=== PATIENT | female | born 1990 | race Caucasian/White ===

== ENCOUNTER 2021-06-20 07:19 | Emergency (ER) | payer OTHER, SELFPAY ==
[2021-06-20 07:47] VITALS: BP 129/70; PULSE 65; RESP 18; TEMP 36.8; O2SAT 98
[2021-06-20 09:00] VITALS: BP 103/69; PULSE 70; RESP 18
[2021-06-20 09:15] LABS: Basophils Absolute Auto 0.1 K/mm3 (0.0-0.1); Basophils Percent Auto 1.1 % (0.2-1.2); Eosinophils Absolute Auto 0.2 K/mm3 (0-0.3); Eosinophils Percent Auto 3.2 % (0-4.4); Immature Granulocyte Absolute 0.02 K/mm3 (0.00-0.031); Immature Granulocyte Percent A 0.3 % (0-0.5); Lymphocytes Absolute Auto 2.45 K/mm3 (0.9-3.2); Lymphocytes Percent Auto 38.8 % (18.3-44.2); Mean Corpuscular HGB Conc 31.6 g/dl (32-36); Mean Corpuscular Hemoglobin 28.2 pg (26-34); Mean Corpuscular Volume 89.4 fl (80-100); Monocytes Absolute Auto 0.5 K/mm3 (0.1-0.6); Monocytes Percent Auto 7.9 % (2.6-8.5); Neutrophils Absolute Auto 3.1 K/mm3 (1.3-6.7); Neutrophils Percent Auto 48.7 % (45.5-73.1); Platelet Count Result 256 k/mm3 (150-375); Red Blood Count 4.25 M/mm3 (4.2-5.4); Red Cell Distribution Width 11.9 % (11.5-14.5); White Blood Count 6.3 K/mm3 (4.5-10.0)
[2021-06-20 09:27] LABS: Anion Gap 4 mmol/L (8-16); Blood Urea Nitrogen 12 mg/dL (7-17); Calcium 9.6 mg/dL (8.4-10.2); Carbon Dioxide 29 mmol/L (22-30); Chloride 107 mmol/L (98-107); Estimated CRCL calculation 112 ml/min; Estimated Glomerular Filt Rate > 60; Glucose 95 mg/dL (65-110); Potassium 4.6 mmol/L (3.4-5.0); Sodium 140 mmol/L (137-145)
--- NOTE | 2021-06-20 10:14 | PC.NURSE ---
software product specialist consulted to come and speak with patient regarding home care.
--- NOTE | 2021-06-20 10:58 | ED.GENADULT ---
HPI - General Adult General Chief complaint: Unspecified Stated complaint: breast pain Time Seen by Provider: 06/20/21 08:02 Source: patient and family Mode of arrival: ambulatory Limitations: no limitations History of Present Illness HPI narrative: 30-year-old with a history of mastitis here with complaints of right breast pain since last night. She denies any fever or chills. She is presently lactating. Denies any redness or drainage , her OB is in [facility]. Onset (ago): day(s) (1) Related Data Allergies Allergy/AdvReac Type Severity Reaction Status Date / Time No Known Allergies Allergy Verified 06/20/21 07:59 Review of Systems Review of Systems: All systems reviewed & are unremarkable except as noted in HPI and below Constitutional: Constitutional: Reports no additional constitutional complaints Eyes: Eyes: Reports no additional eye complaints ENT: Reports system reviewed and no additional complaints, except as documented Cardiovascular: Cardiovascular: Reports no additional cardiovascular complaints Gastrointestinal: Gastrointestinal: Reports no additional gastrointestinal complaints Genitourinary: Genitourinary: Reports no additional female genitourinary complaints Musculoskeletal: Musculoskeletal: Reports no additional musculoskeletal complaints Integumentary/Breasts: Skin/Breast: Reports as per HPI Neurologic: Reports system reviewed and no additional complaints, except as documented Exam Narrative: GENERAL: Well-appearing, well-nourished, and in no acute distress. HEAD: Normocephalic, atraumatic. EYES: PERRLA and EOMI.. NECK: Supple. Breast Right breast is engorged ,tender on palpation ,no erythema CHEST: Clear to auscultation. No respiratory distress. HEART: Regular rate and rhythm. No murmur heard. Normal peripheral pulses. ABDOMEN: Soft, nontender, nondistended, normal active bowel sounds. EXTREMITIES: Normal range of motion. No edema. SKIN: Warm, dry, no rash. NEURO: No focal deficits. Alert and oriented x3. PSYCH: Normal mood and affect. Course Course Emergency Course: Inform patient about her lab work. referral specialist from OB department was here to see the patient. She instructions were given by her and she will follow-up with her on outpatient basis. Meanwhile we will start on Augmentin. Advised to take Tylenol as needed for pain. Vital Signs Vital signs: Vital Signs Temperature 36.8 C 06/20/21 07:47 Pulse Rate 65 06/20/21 07:47 Respiratory Rate 18 06/20/21 07:47 Blood Pressure 129/70 06/20/21 07:47 Pulse Oximetry 98 06/20/21 07:47 Temperature 36.8 C 06/20/21 07:47 Pulse Rate 54 L 06/20/21 11:01 Respiratory Rate 18 06/20/21 11:01 Blood Pressure 102/72 06/20/21 11:01 Pulse Oximetry 98 06/20/21 11:01 Medical Decision Making Vital Signs Vital Signs: Vital Signs Temperature 36.8 C 06/20/21 07:47 Pulse Rate 65 06/20/21 07:47 Respiratory Rate 18 06/20/21 07:47 Blood Pressure 129/70 06/20/21 07:47 Pulse Oximetry 98 06/20/21 07:47 Temperature 36.8 C 06/20/21 07:47 Pulse Rate 54 L 06/20/21 11:01 Respiratory Rate 18 06/20/21 11:01 Blood Pressure 102/72 06/20/21 11:01 Pulse Oximetry 98 06/20/21 11:01 Lab Data Result diagrams: 06/20/21 09:02 06/20/21 09:02 Labs: Lab Results 06/20/21 06/20/21 Range/Units 09:02 09:02 WBC 6.3 (4.5-10.0) K/mm3 RBC 4.25 (4.2-5.4) M/mm3 Hgb 12.0 (12.0-15.0) g/dL Hct 38.0 (37.0-47.0) % MCV 89.4 (80-100) fl MCH 28.2 (26-34) pg MCHC 31.6 L (32-36) g/dl RDW 11.9 (11.5-14.5) % Plt Count 256 (150-375) k/mm3 MPV 10.0 (7.4-10.4) fl Immature Gran % (Auto) 0.3 (0-0.5) % Neut % (Auto) 48.7 (45.5-73.1) % Lymph % (Auto) 38.8 (18.3-44.2) % [place] % (Auto) 7.9 (2.6-8.5) % Eos % (Auto) 3.2 (0-4.4) % Baso % (Auto) 1.1 (0.2-1.2) % Lymph # (Auto) 2.45 (0.9-3.2) K/mm3 [place] # (Auto) 0
[2021-06-20 11:01] VITALS: BP 102/72; PULSE 54; RESP 18; O2SAT 98
--- NOTE | 2021-06-20 11:01 | PC.NURSE ---
care consultant in room to speak with pt.
--- NOTE | 2021-06-25 12:26 | PC.NURSE ---
Pt seen on 06-20-2021 charted noted on 06-25-2021. Called to consult pt. in ED for mastitis. Mother reports this is the 2nd time she has had mastitis with this child. Mother is pumping and bottle feeding. First episode mother had red areas to both breast and had a temperature for several days. She was able to resolve plugged areas within a few days and completed antibiotic treatment as ordered. A few days ago mother began with tender areas and lumps to both breasts , which quickly began to be extremely painful and reports she was unable to get the areas to resolve. Mother states she wishes to stop pumping and use the stored EBM she has and switch to formula. Discussed mother's pumping history, she is pumping 6-7 oz every 3-4 hours, she does not always feel empty each pumping session. Mother will limit pumping to 20 minutes. Infant is feeding 3 oz every three hours. Reviewed oversupply and reviewed mother is pumping more than 2 times infant feeding each session. Reviewed massage, self expression and warm compresses before pumping to assist with emptying breast completely each pumping session for the next 2-3 days. Mother will then begin to decrease pumping session by 1-2 minutes and to ice pack breasts after each session, decreasing every 2-3 days to slowly decrease milk supply Reviewed to watch for plugged ducts and work to resolve area within a few pumping sessions. Phone number given and requested mother call with further questions or concerns with pumping and milk supply. Advised to complete antibiotic treatment as ordered.
== END 2021-06-20 11:20 | disposition home or self-care (01) ==
PROVIDERS: Emergency Provider Family Medicine
DX: O91.23 Nonpurulent mastitis associated with lactation (principal)
CPT/HCPCS: 36415; 80048; 85025; 99283

== ENCOUNTER 2024-11-24 19:22 | Emergency (ER) | payer OTHER, SELFPAY ==
--- OUTSIDE RECORDS SUMMARY | 2024-11-24 19:24 | XMS_ITS | Clinical Summary ---
Author Organization [facility] Address [address] [place] [id number] Phone Care Team Providers Care Stereotype Molder Name Role Phone Unavailable Primary Care Provider Unavailabl e Social History Tobacco Use Types Packs/Day Years Used Date Smoking Tobacco: Never Assessed Comments Unknown Sex and Gender Information Value Date Recorded Sex Assigned at Not on file Legal Sex Female 11:36 AM [employer] Gender Identity Not on file Sexual Orientation Not on file Plan of Treatment Health Maintenance Due Date Last Done Comments DTAP/TDAP/TD VACCINES (1 - Tdap) 2008 HEPATITIS B VACCINES (1 of 3 - 19+ 3-dose series) 2008 CERVICAL CANCER SCREENING 2019 INFLUENZA VACCINE (#1) 2024 HPV VACCINES Aged Out No longer eligi ble based on patient's age to complete this topic
--- OUTSIDE RECORDS SUMMARY | 2024-11-24 19:24 | XMS_ITS | Clinical Summary ---
Author Organization [facility] C Address [address] [place] [address] Care Team Providers Care Gas Appliance Installer Name Role Phone Karrie Kessler MD Primary Care Provider Ayleen Quan RN Unavailable Unavailable Allergies No known active allergies Medications vit 93-iron fum-folic 9 mg iron- 267 mcg tablet Take by mouth Active acetaminophen (TYLENOL) 500 mg tablet Take 1 tablet (500 mg total) by mouth every 6 (six) hours as needed for pain Active ferrous sulfate (SLOW FE ORAL) Take by mouth daily Active blood-glucose meter kit To be used to take blood sugars 4 times daily (fasting and 1 hour after each meal) 1 kit 4 Active Additional Information Patient not taking.Reported on 10/28/2024 lancets misc To be used to take blood sugars 4 times daily (fasting and 1 hour after each meal) 100 each 3 4 Active Additional Information Patient not taking.Reported on 10/28/2024 ibuprofen (ADVIL,MOTRIN) 600 mg tablet Take 1 tablet (600 mg total) by mouth every 6 (six) hours as needed for pain 60 tablet 5 Active Additional Information Patient not taking.Reported on 10/28/2024 oxyCODONE (ROXICODONE) 5 mg immediate release tabletIndicati ons:Pain Take 1 tablet (5 mg total) by mouth every 4 (four) hours as needed for pain 20 tablet 5 Active Additional Information Patient not taking.Reported on 10/28/2024 triamcinolone (KENALOG) 0.1 % ointment Apply topically 2 (two) times a day 30 g 1 5 Active Additional Information Patient not taking.Reported on 10/28/2024 predniSONE (DELTASONE) 10 mg tablet Take 4 tablets daily for 3 days then 3 tablets daily for 3 days then 2 tablets daily for 3 days then 1 tablet daily for 3 days then 1/2 tablet for 3 days 32 tablet 5 Active Additional Information Patient not taking.Reported on 10/28/2024 levonorgestreL (MIRENA) IUD 1 each by intrauterine route continuous Mirena [facility] [place]: [id number] Lot:[id number] Exp: 11/2026 5 033 Active magnesium oxide 400 mg magnesium capsule Take by mouth daily 025 Discontin ued(Thera nicholas knox ) Hospital, Clinic, or Other Facility Administered Medication Ordered Dose Route Frequency Start Date End Date Status levonorgestreL (MIRENA) 21 mcg/24hr (up to 8 yrs) 52 mg IUD 1 eachIndications:En counter for insertion of Mirena IUD 1 each intrauterine One-Time Injection 10/28/2024 5 Ended Active Problems Problem Noted Date Diagnosed Date macrosomia in , antepartum 2024 Third trimester 09/19/2024 Delivery of by section 2023 Labor without complication 09/13/2024 History of section complicating pregnan cy 09/13/2024 37 weeks gestation of 09/12/2024 At high risk for breast cancer 03/03/2023 Assessment & Plan (03/03/2023 11:25 AM CDT): Needs baseline mammogram for breast density. TC score currently lifetime risk 34.76% and 5 year risk 0.71%. Mammogram with alternating breast MRI recommended. Resolved Problems Problem Noted Date Diagnosed Date Resolved Date Routine follow-up 06/12/2021 07/08/2021 Assessment & Plan (06/12/2021 8:43 PM CDT): Doing well. Mirena IUD placed without difficulty. Return in 3-4 weeks for IUD check. 39 weeks gestation of 04/26/2021 06/12/2021 Supervision of normal first 09/11/2020 07/08/2021 Overview (09/17/2020): ALECIA 05/03/2021 confirmed by 6 week US A+ Antibody negative HIV NR HBsAg NR RPR NR Rubella immune Varicella immune Hb 11.8 Plts 298 Urine culture no growth Desires NIPT Encounters Date Type Department Care Team Description 10/28/2024 1:15 PM AUTOCAD DRAFTSMAN Procedure visit [facility] [address] [place] [phone] Karrie Kessler MD Encounter for routine follow-up (Primary Dx); Encounter for insertion of Mirena IUD 09/30/2024 12:15 PM AUTOCAD DRAFTSMAN Office Visit [facility] [address] [place] [phone] Karrie Kessler MD Encounter for routine follow-up (Primary Dx) 09/20/[address] [facility] [address] [place] [phone] Karrie Kessler MD 09/19/[address] [facility] [address] [place] [phone] Karrie Kessler MD 09/12/2024 11:00 AM AUTOCAD DRAFTSMAN - 09/12/2024 12:00 PM AUTOCAD DRAFTSMAN Surgery [facility] [address] [place] [phone] Karrie Kessler MD REPEAT SECTION 09/12/2024 9:16 AM AUTOCAD DRAFTSMAN Anesthesia Event [facility] [address] [place] [phone] Chantal Saenz MD Hoppe, William J., MEDICAL DEVICE SALES REPRESENTATIVE 09/12/2024 8:29 AM AUTOCAD DRAFTSMAN - 09/15/2024 1:00 PM AUTOCAD DRAFTSMAN Hospital Encounter [facility] [address] [place] [phone] Karrie Kessler MD Delivery of by section (Primary Dx); 37 weeks gestation of ; Labor without complication; History of section complicating Discharge Disposition: Discharge to home or self care 09/09/2024 6:48 PM AUTOCAD DRAFTSMAN - 09/09/2024 11:59 PM AUTOCAD DRAFTSMAN Hospital Encounter [address] [phone] Third trimester Discharge Disposition: Discharge to home or self care 09/09/2024 11:45 AM AUTOCAD DRAFTSMAN Office Visit [facility] [address] [phone] Karrie Kessler MD Third trimester (Primary Dx); macrosomia during , antepartum, single or unspecified fetus 08/31/2024 11:22 AM AUTOCAD DRAFTSMAN - 08/31/2024 11:59 PM AUTOCAD DRAFTSMAN Hospital Encounter [facility] Maternal Medicine Ultrasound[facility] [address] [place] [phone] Third trimester Discharge Disposition: Discharge to home or self care 08/31/2024 Telephone [facility] [address] [phone] Karrie Kessler MD from Last 3 Months Immunizations Immunization Administration Dates Next Due RSV, Bivalent, Protein Subun it Rsvpref, Diluent (Abrysvo) 08/24/2024 Tdap 07/20/2024,02/15/2021 Surgical History Surgery Date Site/Laterality Comments ARM SURGERY Right SECTION, LOW TRANSVERSE 04/26/2021 Medical History Medical History Date Comments 2020 Family History Medical History Relation Name Comments Prostate cancer Father Bladder Cancer Maternal Grandfather Breast cancer Maternal Grandmother diagno sed >50 years old Breast cancer Mother Colon cancer Neg Hx Endometrial cancer Neg Hx Ovarian cancer Neg Hx Pancreatic cancer Neg Hx Relation Name Status Comments Father Maternal Grandfather Maternal Grandmother Mother Social History Tobacco Use Types Packs/Day Years Used Date Smoking Tobacco: Never Smokeless Tobacco: Never Tobacco Cessation:Counseling Given: Not Answered Social Connection and Isolat ion Panel [NHANES] Answer Date Recorded In a typical week, how many times do you talk on the phone with family, friends, or neighbors? More than three times a week 09/12/2024 How often do you get togethe r with friends or relatives? More than three times a week 09/12/2024 How often do you attend chur ch or latter day services? Patient declined 09/12/2024 Do you belong to any clubs o r organizations such as uatsdin groups, unions, fraternal or athletic groups, or school groups? Patient declined 09/12/2024 How often do you attend meet ings of the clubs or organizations you belong to? Patient declined 09/12/2024 Are you , , di vorced, , never , or living with a partner? Patient declined 09/12/2024 AUDIT-C Answer Date Recorded Q1: How often do you have a drink containing alc ohol? 2-4 times a month 07/10/2023 Q2: How many drinks containi ng alcohol do you have on a typical day when you are drinking? 3 or 4 07/10/2023 Q3: How often do you have si x or more drinks on one occasion? Never 07/10/2023 Overall Financial Resource Strain (CARDIA) Answe r Date Recorded How hard is it for you to pa y for the very basics like food, housing, medical care, and heating? Not hard at all 09/12/2024 PHQ-2 Answer Date Recorded PHQ-2 Total Score (If total score is 3 or more points, staff should administer the PHQ-9) 0 09/12/2024 [facility] Occupat ional Health - Occupational Stress Questionnaire Answer Date Recorded Do you feel stress - tense, restless, nervous, or anxious, or unable to sleep at night because your mind is troubled all the time - these days? Not at all 09/12/2024 Hunger Vital Sign Answer Date Recorded Within the past 12 months, y ou worried that your food would run out before you got the money to buy more. Never true 12/30/20 24 Within the past 12 months, t he food you bought just didn't last and you didn't have money to get more. Never true 09/12/2024 PRAPARE - Transportation Answer Date Re corded In the past 12 months, has l ack of transportation kept you from medical appointments or from getting medications? No 08/16 In the past 12 months, has l ack of transportation kept you from meetings, work, or from getting things needed for daily living? No 09/12/2024 Hosmer Depression Scale Answer Date Recorded Hosmer Depression Scale Total 1 09/13/2024 The thought of harming myself has occurred to me . Never 09/13/2024 PHQ-9 Answer Date Recorded PHQ-9 Total Score 0 09/12/2024 Housing Stability Vital Sign Answer Donald e Recorded In the last 12 months, was t here a time when you were not able to pay the mortgage or rent on time? No 09/12/2024 Number of Times Moved in the Last Year Not on fi le 09/12/2024 At any time in the past 12 m [facility], were you homeless or living in a longterm (including now)? No 09/12/2024 Personal Safety Answer Date Recorded Have you ever been in or are you currently in a harmful physical or emotional relationship or is someone making you feel afraid or unsafe? Denies 09/12/2024 Comments No Sex and Gender Information Value Date Recorded Sex Assigned at Not on file Legal Sex Female 8:58 AM AUTOCAD DRAFTSMAN Gender Identity Female 09/20/2020 6:41 AM AUTOCAD DRAFTSMAN Sexual Orientation Not on file Obstetrics History Para Term AB IAB SAB Ectopic Multiple Livin g Live Births 3 2 2 0 2 2 Date Outcome GA Total Labor Labor/2nd/3rd Weight Sex Type Anes PTL Biib A1 A5 Name Clin 2020 Term 39w 0d 0h 02m 0h 02m 3.325 kg (7 lb 5.3 oz) M CS-LT ranv Epidur al N Livin g 8 9 [place]o MAE Abiga il Thuet, MD Complications:Non-reassuring electronic monitoring tracing Delivery Location:This Facil ity ([facility] L AND D PROCEDURE) 2023 Term 37w 0d 0h 02m 0h 02m 3.44 kg (7 lb 9.3 oz) M C-Sec tion Combin ed Spinal /Epidu ral N Livin g 8 9 Taryn Cooney MD Complications:None Delivery Location:This Facil ity ([facility] L AND D PROCEDURE) Comments Monthly menses when not preg nant Denies h/o STIs Denies h/o abnormal pap smears Last Filed Vital Signs Vital Sign Reading Time Taken Comments Blood Pressure 118/68 10/28/2024 1:18 PM AUTOCAD DRAFTSMAN Pulse 75 09/15/2024 8:43 AM AUTOCAD DRAFTSMAN Temperature 36.2 C (97.2 F) 09/15/2024 8:43 AM AUTOCAD DRAFTSMAN Respiratory Rate 18 09/15/2024 8:43 AM AUTOCAD DRAFTSMAN Oxygen Saturation 99% 09/15/2024 8:43 AM AUTOCAD DRAFTSMAN Inhaled Oxygen Concentration - - Weight 91.2 kg (201 lb) 09/12/2024 9:08 AM AUTOCAD DRAFTSMAN Height 170.2 cm (5' 7 ) 10/28/2024 1:18 PM AUTOCAD DRAFTSMAN Body Mass Index 31.48 09/12/2024 9:08 AM AUTOCAD DRAFTSMAN Plan of Treatment Health Maintenance Due Date Last Done Comments Varicella Vaccines (1 of 2 - 13+ 2-dose series) 2002 Hepatitis B Screening 2007 Cervical Cancer Screening 10/01/2021 10/01/2020 Regular Well Visit/Exam 18-64 02/28/2024 02/27/2023 Influenza Vaccine (#1) 2024 Depression Screening 09/13/2025 09/13/2024, 08/10/2024, 08/10/2024, Additional history exists DTaP/Tdap/Td Vaccine (3 - Td or Tdap) 07/20/2034 07/20/2024, 02/15/2021 Hepatitis C Screening Completed 02/26/2024, 023 HPV Vaccines Aged Out No longer eligi ble based on patient's age to complete this topic Pneumococcal vaccine <65 Aged Out No longer eligible based on patient's age to complete this topic Procedures Procedure Name Priority Date/Time Associated Diagnosis Comments OK INSERTION INTRAUTERINE DEVICE IUD Routine 10/28/2024 1:15 PM AUTOCAD DRAFTSMAN Encounter for insertion of Mirena IUD CBC WITHOUT DIFFERENTIAL Routine 09/13/2024 6:49 AM AUTOCAD DRAFTSMAN PREPARE RBC STAT 09/12/2024 12:37 PM AUTOCAD DRAFTSMAN REPEAT SECTION 09/12/2024 10:40 AM AUTOCAD DRAFTSMAN ALECIA 10/03/2023 Repeat OK AN PROCEDURE PLACEHOLDER Routine 09/12/2024 9:59 AM AUTOCAD DRAFTSMAN DIFFERENTIAL AUTO STAT 09/12/2024 8:5 4 AM AUTOCAD DRAFTSMAN TYPE AND SCREEN STAT 09/12/2024 8:54 AM AUTOCAD DRAFTSMAN CBC WITH AUTO DIFFERENTIAL STAT 09/12/2024 8:54 AM AUTOCAD DRAFTSMAN RPR STAT 09/12/2024 8:54 AM AUTOCAD DRAFTSMAN GROUP B STREPTOCOCCUS CULTURE Routine 09/09/2024 6:50 PM AUTOCAD DRAFTSMAN Third trimester POCT URINALYSIS DIPSTICK Routine 09/09/2024 11:45 AM AUTOCAD DRAFTSMAN Third trimester SCAN - RADIOLOGY/IMAGING 09/09/2024 11:26 AM AUTOCAD DRAFTSMAN US OB FOLLOW UP Schedule Routine, Read Routine (OP Routine) 08/31/2024 12:10 PM AUTOCAD DRAFTSMAN Third trimester HEPATITIS C ANTIBODY Routine 02/26/2024 10:05 AM CDT with inconclusive viability, single or unspecified fetus PAP AND HIGH RISK HPV, REFLEX TO GENOTYPING Routine 10/01/2020 3:07 PM AUTOCAD DRAFTSMAN Encounter for supervision of normal first in first trimester from Last 3 Months or Most Recently Relevant to Health Maintenance Results * OK INSERTION INTRAUTERINE DEVICE IUD (10/28/2024 1:15 PM AUTOCAD DRAFTSMAN) Narrative Karrie Kessler MD - 10/28/2024 1:15 PM AUTOCAD DRAFTSMAN Karrie Kessler MD 10/30/2024 2:08 PM IUD - Insertion/removal/reinsertion procedure. Performed by: Karrie Kessler MD Authorized by: Karrie Kessler MD Consent Given by: Patient Verbal consent obtained: Yes Written consent obtained: Yes Risks, alternatives, and patient questions discussed: Yes Insertion: Pelvic exam performed: yes Negative urine test: yes Cervix cleaned and prepped: yes Speculum placed in vagina: yes Tenaculum applied to cervix: yes IUD inserted with no complications: yes IUD type: 1 each levonorgestreL 21 mcg/24hr (up to 8 yrs) 52 mg Strings trimmed: yes Uterus sounded to confirm IUD placement: yes Uterus sound depth (cm): 8 Post-procedure: Patient tolerance: Patient tolerated the procedure well with no immediate complications Comments: Karrie Kessler MD us Karrie Kessler MD IN CLINIC/BEDSIDE MALIK HANSON Final Result * (ABNORMAL) CBC without differential (09/13/2024 6:49 AM AUTOCAD DRAFTSMAN) Pathologist [facility] [place] WBC 7.5 3.8 - 9.9 K/cumm Hgb 11.4(L) 11.9 - 15.5 g/dL [facility] Comment:Consistent with yaritza ent history. Hct 34.9(L) 35.6 - 45.5 % [facility] Plt 203 150 - 400 K/cumm [facility] MPV 10.1 9.1 - 12.3 fL [facility] RBC 3.86(L) 3.90 - 5.20 M/cumm [facility] MCV 90.4 81.3 - 96.4 fL [facility] MCH 29.5 27.1 - 33.3 pg [facility] MCHC 32.7 32.3 - 35.7 g/dL [facility] RDW CV 12.9 11.1 - 14.9 % [facility] RDW SD 42.2 35.7 - 48.1 fL [facility] NRBC abs 0.00 0.00 - 0.01 K/cumm [facility] Blood 09/13/2024 6:49 AM AUTOCAD DRAFTSMAN 09/13/2024 7:03 AM AUTOCAD DRAFTSMAN Karrie Kessler MD LAB BLOOD ORDERABLES F inal Result Performing Organization Address [facility] Co de Phone Number [facility] [address] [facility] [place] [address] * Prepare RBC: 2 Units (09/12/2024 12:37 PM AUTOCAD DRAFTSMAN) Product code [id number] Unit Number [id number] 4-* [facility] Product Blood Type APOS [facility] Dispense Status RETURNED [facility] Product code [id number] [facility] Unit Number [id number] 4-S [facility] Product Blood Type APOS [facility] Dispense Status RETURNED [facility] Blood 09/12/2024 12:3 7 PM AUTOCAD DRAFTSMAN Narrative [facility] - 09/15/2024 9:11 AM AUTOCAD DRAFTSMAN Other indication->high hem risk post repeat Are special requirements needed? (All products are leukoreduced and CMV- safe)- >No Date required:-[id number] LRRBC # of [id number] Reasons:-Other (specify)} Karrie Kessler MD BLOOD BANK PRODUCT ORD ERABLES Final Result Performing Organization Address [facility] Co de Phone Number [facility] [address] [facility] [place] [address] * OK AN PROCEDURE PLACEHOLDER (09/12/2024 9:59 AM AUTOCAD DRAFTSMAN) Narrative Zach Patricio CRNA - 09/12/2024 9:59 AM AUTOCAD DRAFTSMAN Zach Patricio CRNA 09/12/2024 10:00 AM Epidural Block Patient location: L&D End time: 09/12/2024 9:40 AM Reason for block: labor analgesia Staff: Placed by: SARAN: Zach Patricio CRNA Procedure prep: Preprocedure checklist: patient identified, procedure contraindications assessed, procedure consent obtained, IV checked, risks, benefits and alternatives discussed, monitors and equipment checked and timeout performed Patient Position: sitting Procedure performed while patient: awake Monitoring: oximetry and blood pressure Prep solution: iodine povacrylex PPE: provider hat/mask, sterile gloves and sterile drape Skin infiltrated with lidocaine 1%: yes Epidural: Approach: midline Imaging guidance used: no Location: L3-4 Number of attempts:1 Epidural needle: Injection technique: MERLINE saline and MERLINE air Needle type: Tuohy Needle gauge: 18 G Needle length: 9 cm Loss of resistance: 7 cm Catheter: Catheter type: multi-orifice. Catheter at skin depth: 12 cm Negative aspiration of blood: no Negative aspiration of CSF: no Test dose: negative Assessment: Sensory level - left: full eval pending Sensory level - right: full eval pending Events: patient tolerated procedure well with no complications Additional comments: Yellow epid cath us Chantal Saenz MD ANESTHESIA ORDERABLES Samantha l Result * Differential, auto (09/12/2024 8:54 AM AUTOCAD DRAFTSMAN) Neutrophil abs 6.0 1.5 - 6.5 K/cumm Imm gran abs 0.1 0.0 - 0.1 K/cumm [facility] Lymphocyte abs 2.7 0.8 - 3.3 K/cumm [facility] Monocyte abs 0.6 0.2 - 0.8 K/cumm [facility] Eosinophil abs 0.0 0.0 - 0.5 K/cumm [facility] Basophil abs 0.0 0.0 - 0.1 K/cumm [facility] Neutrophil pct 64.1 % [facility] Comment: Interpretive Data Percent cell count reference ranges are not reported, since discordance with absolute values may lead to misinterpretation of CBC data. Current Interpretive Data was last revised on 2017. Imm gran pct 0.7 % [facility] Comment: Interpretive Data Percent cell count reference ranges are not reported, since discordance with absolute values may lead to misinterpretation of CBC data. Current Interpretive Data was last revised on 2017. Lymphocyte pct 28.6 % [facility] Comment: Interpretive Data Percent cell count reference ranges are not reported, since discordance with absolute values may lead to misinterpretation of CBC data. Current Interpretive Data was last revised on 2017. Monocyte pct 5.9 % [facility] Comment: Interpretive Data Percent cell count reference ranges are not reported, since discordance with absolute values may lead to misinterpretation of CBC data. Current Interpretive Data was last revised on 2017. Eosinophil pct 0.3 % [facility] Comment: Interpretive Data Percent cell count reference ranges are not reported, since discordance with absolute values may lead to misinterpretation of CBC data. Current Interpretive Data was last revised on 2017. Basophil pct 0.4 % [facility] Comment: Interpretive Data Percent cell count reference ranges are not reported, since discordance with absolute values may lead to misinterpretation of CBC data. Current Interpretive Data was last revised on 2017. Blood 09/12/2024 8:54 AM AUTOCAD DRAFTSMAN 09/12/2024 9:26 AM AUTOCAD DRAFTSMAN Karrie Kessler MD LAB BLOOD ORDERABLES F inal Result [facility] [address] [place] [address] * CBC with auto differential (09/12/2024 8:54 AM AUTOCAD DRAFTSMAN) WBC 9.4 3.8 - 9.9 K/cumm Hgb 13.9 11.9 - 15.5 g/dL [facility] Hct 41.4 35.6 - 45.5 % [facility] Plt 267 150 - 400 K/cumm [facility] MPV 10.7 9.1 - 12.3 fL [facility] RBC 4.69 3.90 - 5.20 M/cumm [facility] MCV 88.3 81.3 - 96.4 fL [facility] MCH 29.6 27.1 - 33.3 pg [facility] MCHC 33.6 32.3 - 35.7 g/dL [facility] RDW CV 12.8 11.1 - 14.9 % [facility] RDW SD 41.1 35.7 - 48.1 fL [facility] NRBC abs 0.00 0.00 - 0.01 K/cumm [facility] Blood 09/12/2024 8:54 AM AUTOCAD DRAFTSMAN 09/12/2024 9:26 AM AUTOCAD DRAFTSMAN Karrie Kessler MD LAB BLOOD ORDERABLES F inal Result Performing Organization Address [facility] Co de Phone Number [facility] [address] [facility] [employer] [place], [place] [id number] * RPR Blood (09/12/2024 8:54 AM AUTOCAD DRAFTSMAN) RPR Nonreactive Nonreactive Comment:Testing performed by : [facility], [address] [facility], [place]., [address] Blood 09/12/2024 8:54 AM AUTOCAD DRAFTSMAN 09/12/2024 1:38 PM AUTOCAD DRAFTSMAN Karrie Kessler MD LAB MICROBIOLOGY - GEN ERAL ORDERABLES Final Result Performing Organization Address [facility] Co de Phone Number [facility] [address] Department [employer] [place], [place] [id number] * Type and screen (09/12/2024 8:54 AM AUTOCAD DRAFTSMAN) Pathologist [facility] Bobo, indirect Negative ABO Rh A Positive [facility] Blood 09/12/2024 8:54 AM AUTOCAD DRAFTSMAN 09/12/2024 9:28 AM AUTOCAD DRAFTSMAN Narrative [facility] - 09/12/2024 10:10 AM AUTOCAD DRAFTSMAN Has the patient had Daratumumab or Isatuximab in the past 6 months?->Unknown Karrie Kessler MD LAB BLOOD BANK TEST OR DERABLES Final Result Performing Organization Address [facility] Co de Phone Number [facility] [address] [facility] [place] [address] * Group B streptococcal culture Vaginal/Rectal (09/09/2024 6:50 PM [employer]OC[employer] DRAFTSMAN) Report Final Report: No Beta-streptoc occus Group B isolated Vaginal/Rectal 09/09/2024 6: 50 PM [employer] D[employer]FTSM[employer] 09/09/2024 7:02 PM [employer]FTSM[employer] us Karrie Kessler MD LAB MICROBIOLOGY - GEN ERAL ORDERABLES Final Result [facility] [address] [place] [address] * POCT urinalysis dipstick (09/09/2024 11:45 AM [employer]OC[employer] DRAFTSMAN) Glucose, ur, POC Negative Negative MG/DL Bilirubin, ur, POC Negative Negative, Small, Moderate, Large Ketones, ur, POC Negative Negative Blood, ur, POC Negative Negative Protein, ur, POC Negative Negative Nitrite, ur, POC Negative Negative Leukocytes, ur, POC Negative Negative Lot Number 0 Urine 09/09/2024 11:4 5 AM [employer]SM[employer] us Karrie Kessler MD POINT OF CARE TEST ORD ERABLES Final Result * SCAN - RADIOLOGY/IMAGING (09/09/2024 11:26 AM [employer]OC[employer] DRAFTSMAN) Anatomical Region Laterality Modality Other us Provider Scanning Final Result * US Ob Follow Up (08/31/2024 12:10 PM AUTOC[employer] DRAFTSMAN) Pathologist [facility] [place] Fetus# [id number] VIEWPOINT Estimated Weight 3,321 g&grams VIEWPOINT Placenta Details anterior, left VIEWPOINT Presentation Vertex VIEWPOINT Anatomical Region Laterality Modality Abdomen N/A Ultrasound 08/31/2024 11:3 3 AM [employer] D[employer]FTSMAN Impressions 08/31/2024 12:11 PM [employer]SM[employer] Single intrauterine at 35w 2d with positive cardiac activity. Vertex. Accelerated interval growth. LGA growth is noted with EFW at the 97% with AC > 99%ile. Baby measuring 3wk ahead. Normal amniotic fluid assessment. Normal anterior, left placenta. Narrative Procedure Note Kiana Vázquez MD - 08/31/2024 IMPRESSION: Single intrauterine at 35w 2d with positive cardiac activity. Vertex. Accelerated interval growth. LGA growth is noted with EFW at the 97% with AC > 99%ile. Babymeasuring 3wk ahead. Normal amniotic fluid assessment. Normal anterior, left placenta. us Karrie Kessler MD IMG OB US PROCEDURES F inal Result * Hepatitis C antibody Blood (02/26/2024 10:05 AM CDT) Hep C Ab Nonreactive Nonreactive Comment:Antibodies to HCV no t detected. Does NOT exclude the possibility of recent exposure to HCV. Current interpretive data was last revised on 22 Blood 02/26/2024 10:0 5 AM CDT 02/26/2024 10:31 AM CDT us Karrie Kessler MD LAB MICROBIOLOGY - GEN ERAL ORDERABLES Final Result [facility] [place] [address] * Pap and High Risk HPV, reflex to Genotyping (10/01/2020 3:07 PM [employer] DRAFTSMAN) Swab 10/01/2020 3:07 PM [employer] DRAFTSMAN 10/02/2020 2:42 PM [employer] DRAFTSMAN Narrative PATHOLOGY [facility] - 10/09/2020 2:40 PM [employer] D[employer]FTSM[employer] EPIC results best viewed via link to PDF [facility] Radha Gleason [facility] Surgical Pathology [place], [place] [id number] CYTOPATHOLOGY REPORT FINAL Patient Name: LYNN MAE Gender: F : 1990 (Age: 29) Address: [address] [place] [address] Hospital #: [id number] Service: Laboratory Location: [facility] Patient Type: [facility] Ref Lab Taken: 10/01/2020 Received: 10/02/2020 Accessioned: 10/02/2020 Reported: 10/09/2020 Physician(s): Karrie Kessler MD FINAL INTERPRETATION SOURCE OF SPECIMEN: Liquid based Thin Prep pap with HPV STATEMENT OF ADEQUACY: - Satisfactory for evaluation - Endocervical cells/transformation zone sample absent GENERAL CATEGORY: - Negative for squamous intraepithelial lesion or malignancy Comments HPV Result: NEGATIVE for high risk types of Human Papilloma Virus (HPV) RNA This probe detects the presence of HPV types: 16, 18, 31, 33, 35, 39, 45, 51, 52, 56, 58, 59, 66 and 68. This HPV test was performed at [facility] in [place], [place] utilizing the Gen-Probe Aptima assay. j/10/09/2020 14:40 IMELDA Richard(ASCP), [facility] Report Electronically Reviewed and Signed Out By IMELDA Richard(ASCP), [facility] 10/09/2020 14:40:39 Cervicovaginal Cytology (Pap Test) Disclaimer: The Pap test is a screening test used to detect cervical cancer and its precursors; it is not a diagnostic procedure. False negative and false positive results do occur. Pap test results should be interpreted in the context of pertinent clinical information and biopsy results as indicated. Gross Description A. Liquid based Thin Prep pap with HPV: Cervical/vaginal - Screening ThinPrep GC/CHL Clinical Diagnosis and History Last Menstrual Period: unknown The patient is a 29 year old woman with screening pap. Report Images and scanned documents, if included only viewable in PDF version The performance characteristics of some immunohistochemical stains, in-situ hybridization and fluorescence in-situ hybridization tests and immunophenotyping by flow cytometry cited in this report (if any) were determined by the Surgical Pathology Department at [facility] as part of an ongoing air quality engineer program and in compliance with federally mandated regulations drawn from the Clinical Laboratory Improvement Act of 1988 (CLIA '88). Some of these tests rely on the use of analyte specific reagents and are subject to specific labeling requirements by the US Food and Drug Administration. Such diagnostic tests may only be performed in a facility that is certified by the Department of Health and Human Services as a high complexity laboratory under CLIA '88. The FDA has determined that such clearance or approval is not necessary. This test is used for clinical purposes. It should not be regarded as investigational or for research. Nevertheless, federal rules concerning the medical use of analyte specific reagents require that the following disclaimer be attached to the report: This test was developed and its performance characteristics determined by the Surgical Pathology Department of [facility]. It has not been cleared or approved by the U. S. Food and Drug Administration. Karrie Kessler MD LAB CYTOLOGY ORDERABLE S Final Result PATHOLOGY [facility] [address] Floor [place], [place] [phone] from Last 3 Months or Most Recently Relevant to Health Maintenance Insurance [facility] [employer] Address: [facility] [id number] [place] [id number] [facility] [employer] Address: [facility] [id number] [place] [address] [employer] [facility] [employer] Address: [facility] [id number] [place] [address] Advance Directives For more information, please contact: [phone] * Full Code (Latest Code Status on File) Date Activated Date Inactivated Comments 09/12/2024 1:31 PM 09/15/2024 5:42 PM * Full Code Date Activated Date Inactivated Comments 09/12/2024 8:47 AM 09/12/2024 1:31 PM Full CPR i n case of cardiopulmonary arrest * Full Code Date Activated Date Inactivated Comments 04/26/2021 10:14 PM 04/29/2021 7:34 PM * Full Code Date Activated Date Inactivated Comments 04/26/2021 5:30 AM 04/26/2021 10:14 PM Full CPR in case of cardiopulmonary arrest Care Teams Gas Appliance Installer Relationship Specialty Start Date End Date Karrie Kessler MD PCP - General Obstetrics and Gynecology 08/30/20 Ayleen Quan, [facility] Breast Risk Program Nurse 03/03/23
--- OUTSIDE RECORDS SUMMARY | 2024-11-24 19:24 | XMS_ITS | Referral Summary ---
Author Organization [facility] C Address [address] [place] [phone] Care Team Providers Care Clinical Rn Name Role Phone Karrie Kessler MD Primary Care Provider Ayleen Quan RN Unavailable Unavailable Encounters Date Type Department Care Team Description 10/28/2024 1:15 PM CIRCULAR KNIFE CUTTER MACHINE Procedure visit [facility] [address] [phone] Karrie Kessler MD Encounter for routine follow-up (Primary Dx); Encounter for insertion of Mirena IUD 09/30/2024 12:15 PM CIRCULAR KNIFE CUTTER MACHINE Office Visit [address] [phone] Karrie Kessler MD Encounter for routine follow-up (Primary Dx) 09/20/2024 Orders Only [address] [phone] Karrie Kessler MD 09/19/2024 Orders Only [address] [phone] Karrie Kessler MD 09/12/2024 8:29 AM CIRCULAR KNIFE CUTTER MACHINE - 09/15/2024 1:00 PM CIRCULAR KNIFE CUTTER MACHINE Hospital Encounter [facility] [address] [place] [phone] Karrie Kessler MD Delivery of by section (Primary Dx); 37 weeks gestation of ; Labor without complication; History of section complicating Discharge Disposition: Discharge to home or self care 09/12/2024 11:00 AM CIRCULAR KNIFE CUTTER MACHINE - 09/12/2024 12:00 PM CIRCULAR KNIFE CUTTER MACHINE Surgery [facility] [address] [place] [phone] Karrie Kessler MD REPEAT SECTION 09/12/2024 9:16 AM CIRCULAR KNIFE CUTTER MACHINE Anesthesia Event [address] [phone] Chantal Saenz MD Hoppe, William J., CRNA 09/09/2024 6:48 PM CIRCULAR KNIFE CUTTER MACHINE - 09/09/2024 11:59 PM CIRCULAR KNIFE CUTTER MACHINE Hospital Encounter [address] [phone] Third trimester Discharge Disposition: Discharge to home or self care 09/09/2024 11:45 AM CIRCULAR KNIFE CUTTER MACHINE Office Visit [facility] [address] [place] [phone] Karrie Kessler MD Third trimester (Primary Dx); macrosomia during , antepartum, single or unspecified fetus 08/31/2024 Telephone [facility] [address] [phone] Karrie Kessler MD 08/31/2024 11:22 AM CIRCULAR KNIFE CUTTER MACHINE - 08/31/2024 11:59 PM CIRCULAR KNIFE CUTTER MACHINE Hospital Encounter [facility] Maternal Medicine Ultrasound[facility] [address] [place] [phone] Third trimester Discharge Disposition: Discharge to home or self care from Last 3 Months Allergies No known active allergies Medications vit [...] 1 each by intrauterine route continuous Mirena [facility]: [phone] Lot:[id number] Exp: 11/2026 5 033 Active magnesium oxide 400 mg magnesium capsule Take by mouth daily 025 Discontin ued(Thera py completed ) Hospital, Clinic, or Other Facility Administered Medication Ordered Dose Route Frequency Start Date End Date Status levonorgestreL (MIRENA) 21 mcg/24hr (up to 8 yrs) 52 mg IUD 1 eachIndications:En counter for insertion of Mirena IUD 1 each intrauterine One-Time Injection 10/28/2024 Ended Active Problems Problem Noted Date Diagnosed [...] 298 Urine culture no growth Desires NIPT Immunizations Immunization Administration Dates Next Due RSV, Bivalent, Protein Subun it Rsvpref, Diluent (Abrysvo) 08/24/2024 Tdap 07/20/2024,02/15/2021 Social History Tobacco Use Types Packs/Day Years [...] often do you attend chur ch or church services? Patient declined 09/12/2024 Do you belong to any clubs o r organizations such as scientologist groups, unions, fraternal or athletic groups, or [...] staff should administer the PHQ-9) 0 09/12/2024 [facility] - Occupational Stress [...] the money to buy more. Never true 09/12/20 24 Within the past 12 months, t [...] things needed for daily living? No 09/12/2024 Dearborn Depression Scale Answer Date Recorded Dearborn Depression Scale Total 1 09/13/2024 The thought [...] any time in the past 12 m [facility], were you homeless or living in a snf (including now)? No 09/12/2024 Personal Safety Answer Date Recorded Have you ever been in or are you currently in a harmful physical or emotional relationship or is someone making you feel afraid or unsafe? Denies 09/12/2024 Comments No Sex and Gender Information Value Date Recorded Sex Assigned at Not on file Legal Sex Female 8:58 AM CIRCULAR KNIFE CUTTER MACHINE Gender Identity Female 09/20/2020 6:41 AM CIRCULAR KNIFE CUTTER MACHINE Sexual Orientation Not on file Last Filed Vital Signs Vital Sign Reading Time Taken Comments Blood Pressure 118/68 10/28/2024 1:18 PM CIRCULAR KNIFE CUTTER MACHINE Pulse 75 09/15/2024 8:43 AM CIRCULAR KNIFE CUTTER MACHINE Temperature 36.2 C (97.2 F) 09/15/2024 8:43 AM CIRCULAR KNIFE CUTTER MACHINE Respiratory Rate 18 09/15/2024 8:43 AM CIRCULAR KNIFE CUTTER MACHINE Oxygen Saturation 99% 09/15/2024 8:43 AM CIRCULAR KNIFE CUTTER MACHINE Inhaled Oxygen Concentration - - Weight 91.2 kg (201 lb) 09/12/2024 9:08 AM CIRCULAR KNIFE CUTTER MACHINE Height 170.2 cm (5' 7 ) 10/28/2024 1:18 PM CIRCULAR KNIFE CUTTER MACHINE Body Mass Index 31.48 09/12/2024 9:08 AM CIRCULAR KNIFE CUTTER MACHINE Plan of Treatment Not on file Procedures Procedure Name Priority Date/Time Associated Diagnosis Comments SD INSERTION INTRAUTERINE DEVICE IUD Routine 10/28/2024 1:15 PM CIRCULAR KNIFE CUTTER MACHINE Encounter for insertion of Mirena IUD CBC WITHOUT DIFFERENTIAL Routine 09/13/2024 6:49 AM CIRCULAR KNIFE CUTTER MACHINE PREPARE RBC STAT 09/12/2024 12:37 PM CIRCULAR KNIFE CUTTER MACHINE REPEAT SECTION 09/12/2024 10:40 AM CIRCULAR KNIFE CUTTER MACHINE ALECIA 10/03/2023 Repeat SD AN PROCEDURE PLACEHOLDER Routine 09/12/2024 9:59 AM CIRCULAR KNIFE CUTTER MACHINE DIFFERENTIAL AUTO STAT 09/12/2024 8:5 4 AM CIRCULAR KNIFE CUTTER MACHINE TYPE AND SCREEN STAT 09/12/2024 8:54 AM CIRCULAR KNIFE CUTTER MACHINE CBC WITH AUTO DIFFERENTIAL STAT 09/12/2024 8:54 AM CIRCULAR KNIFE CUTTER MACHINE RPR STAT 09/12/2024 8:54 AM CIRCULAR KNIFE CUTTER MACHINE GROUP B STREPTOCOCCUS CULTURE Routine 09/09/2024 6:50 PM CIRCULAR KNIFE CUTTER MACHINE Third trimester POCT URINALYSIS DIPSTICK Routine 09/09/2024 11:45 AM CIRCULAR KNIFE CUTTER MACHINE Third trimester SCAN - RADIOLOGY/IMAGING 09/09/2024 11:26 AM CIRCULAR KNIFE CUTTER MACHINE US OB FOLLOW UP Schedule Routine, Read Routine (OP Routine) 08/31/2024 12:10 PM CIRCULAR KNIFE CUTTER MACHINE Third trimester HEPATITIS C ANTIBODY Routine 02/26/2024 10:05 AM CDT with inconclusive viability, single or unspecified fetus PAP AND HIGH RISK HPV, REFLEX TO GENOTYPING Routine 10/01/2020 3:07 PM CIRCULAR KNIFE CUTTER MACHINE Encounter for supervision of normal first in first trimester from Last 3 Months or Most Recently Relevant to Health Maintenance Results * SD INSERTION INTRAUTERINE DEVICE IUD (10/28/2024 1:15 PM CIRCULAR KNIFE CUTTER MACHINE) Narrative Karrie Kessler MD - 10/28/2024 1:15 PM CIRCULAR KNIFE CUTTER MACHINE Karrie Kessler MD 10/30/2024 2:08 PM IUD [...] (ABNORMAL) CBC without differential (09/13/2024 6:49 AM CIRCULAR KNIFE CUTTER MACHINE) WBC 7.5 3.8 - 9.9 K/cumm Hgb 11.4(L) 11.9 - 15.5 g/dL [facility] Comment:Consistent with yaritza ent history. Hct 34.9(L) 35.6 - 45.5 % [facility] Plt 203 150 - 400 K/cumm [facility] MPV 10.1 9.1 - 12.3 fL [facility] RBC 3.86(L) 3.90 - 5.20 M/cumm [facility] MCV 90.4 81.3 - 96.4 fL [facility] MCH 29.5 27.1 - 33.3 pg [facility] MCHC 32.7 32.3 - 35.7 g/dL [facility] RDW CV 12.9 11.1 - 14.9 % [facility] RDW SD 42.2 35.7 - 48.1 fL [facility] NRBC abs 0.00 0.00 - 0.01 K/cumm [facility] Blood 09/13/2024 6:49 AM CIRCULAR KNIFE CUTTER MACHINE 09/13/2024 7:03 AM CIRCULAR KNIFE CUTTER MACHINE us Karrie Kessler MD LAB BLOOD ORDERABLES F inal Result [facility] [address] [place] [address] * Prepare RBC: 2 Units (09/12/2024 12:37 PM CIRCULAR KNIFE CUTTER MACHINE) Product code I6332S37 Unit Number [id number] 4-* [facility] Product Blood Type APOS [facility] Dispense Status RETURNED [facility] Product code [id number] [facility] Unit Number [id number] 4-S [facility] Product Blood Type APOS [facility] Dispense Status RETURNED [facility] Blood 09/12/2024 12:3 7 PM CIRCULAR KNIFE CUTTER MACHINE Bryon [facility] - 09/15/2024 9:11 AM CIRCULAR KNIFE CUTTER MACHINE Other indication->high hem risk post repeat Are special requirements needed? (All products are leukoreduced and CMV- safe)- >No Date required:-[id number] LRRBC # of [id number] Reasons:-Other (specify)} Karrie Kessler MD BLOOD BANK PRODUCT ORD ERABLES Final Result [facility] [address] [facility] [place] [place] [address] * SD AN PROCEDURE PLACEHOLDER (09/12/2024 9:59 AM CIRCULAR KNIFE CUTTER MACHINE) Narrative Zach Patricio CRNA - 09/12/2024 9:59 AM CIRCULAR KNIFE CUTTER MACHINE Zach Patricio CRNA 09/12/2024 10:00 AM Epidural Block Patient location: L&D End time: 09/12/2024 9:40 AM Reason for block: labor analgesia Staff: Placed by: CONSUMER SALES REPRESENTATIVE: Zach Patricio CRNA Procedure prep: Preprocedure checklist: [...] Result * Differential, auto (09/12/2024 8:54 AM CIRCULAR KNIFE CUTTER MACHINE) Neutrophil abs 6.0 1.5 - 6.5 K/cumm Imm gran abs 0.1 0.0 - 0.1 K/cumm [facility] Lymphocyte abs 2.7 0.8 - 3.3 K/cumm [facility] Monocyte abs 0.6 0.2 - 0.8 K/cumm [facility] Eosinophil abs 0.0 0.0 - 0.5 K/cumm [facility] Basophil abs 0.0 0.0 - 0.1 K/cumm [facility] Neutrophil pct 64.1 % [facility] Comment: Interpretive Data Percent cell count reference ranges are not reported, since discordance with absolute values may lead to misinterpretation of CBC data. Current Interpretive Data was last revised on 2017. Imm gran pct 0.7 % [facility] Comment: Interpretive Data Percent cell count reference ranges are not reported, since discordance with absolute values may lead to misinterpretation of CBC data. Current Interpretive Data was last revised on 2017. Lymphocyte pct 28.6 % [facility] Comment: Interpretive Data Percent cell count reference ranges are not reported, since discordance with absolute values may lead to misinterpretation of CBC data. Current Interpretive Data was last revised on 2017. Monocyte pct 5.9 % [facility] Comment: Interpretive Data Percent cell count reference ranges are not reported, since discordance with absolute values may lead to misinterpretation of CBC data. Current Interpretive Data was last revised on 2017. Eosinophil pct 0.3 % [facility] Comment: Interpretive Data Percent cell count reference ranges are not reported, since discordance with absolute values may lead to misinterpretation of CBC data. Current Interpretive Data was last revised on 2017. Basophil pct 0.4 % [facility] Comment: Interpretive Data Percent cell count reference ranges are not reported, since discordance with absolute values may lead to misinterpretation of CBC data. Current Interpretive Data was last revised on 2017. Blood 09/12/2024 8:54 AM CIRCULAR KNIFE CUTTER MACHINE 09/12/2024 9:26 AM CIRCULAR KNIFE CUTTER MACHINE us Karrie Kessler MD LAB BLOOD ORDERABLES F inal Result [facility] [address] Department [place] [address] * CBC with auto differential (09/12/2024 8:54 AM CIRCULAR KNIFE CUTTER MACHINE) WBC 9.4 3.8 - 9.9 K/cumm Hgb 13.9 11.9 - 15.5 g/dL [facility] Hct 41.4 35.6 - 45.5 % [facility] Plt 267 150 - 400 K/cumm [facility] MPV 10.7 9.1 - 12.3 fL [facility] RBC 4.69 3.90 - 5.20 M/cumm [facility] MCV 88.3 81.3 - 96.4 fL [facility] MCH 29.6 27.1 - 33.3 pg [facility] MCHC 33.6 32.3 - 35.7 g/dL [facility] RDW CV 12.8 11.1 - 14.9 % [facility] RDW SD 41.1 35.7 - 48.1 fL [facility] NRBC abs 0.00 0.00 - 0.01 K/cumm [facility] Blood 09/12/2024 8:54 AM CIRCULAR KNIFE CUTTER MACHINE 09/12/2024 9:26 AM CIRCULAR KNIFE CUTTER MACHINE Karrie Ksesler MD LAB BLOOD ORDERABLES F inal Result Performing Organization Address [facility] Co de Phone Number [facility] [address] Department [place] [address] * RPR Blood (09/12/2024 8:54 AM CIRCULAR KNIFE CUTTER MACHINE) RPR Nonreactive Nonreactive Comment:Testing performed by : [facility], [address] [place]., [address] Blood 09/12/2024 8:54 AM CIRCULAR KNIFE CUTTER MACHINE 09/12/2024 1:38 PM CIRCULAR KNIFE CUTTER MACHINE Karrie Kessler MD LAB MICROBIOLOGY - GEN ERAL ORDERABLES Final Result Performing Organization Address [facility] Co de Phone Number [facility] [address] Department of Laboratories [place], [place] [id number] * Type and screen (09/12/2024 8:54 AM CIRCULAR KNIFE CUTTER MACHINE) Pathologist [facility], indirect Negative ABO Rh A Positive [facility] Blood 09/12/2024 8:54 AM CIRCULAR KNIFE CUTTER MACHINE 09/12/2024 9:28 AM CIRCULAR KNIFE CUTTER MACHINE Narrative [facility] - 09/12/2024 10:10 AM CIRCULAR KNIFE CUTTER MACHINE Has the patient had Daratumumab or Isatuximab in the past 6 months?->Unknown Karrie Kessler MD LAB BLOOD BANK TEST OR DERABLES Final Result Performing Organization Address [facility] Co de Phone Number [facility] [address] Department of Laboratories [place], [place] [phone] * Group B streptococcal culture Vaginal/Rectal (09/09/2024 6:50 PM CIRCULAR KNIFE CUTTER MACHINE) Report Final Report: No Beta-streptoc occus Group B isolated Vaginal/Rectal 09/09/2024 6: 50 PM CIRCULAR KNIFE CUTTER MACHINE 09/09/2024 7:02 PM CIRCULAR KNIFE CUTTER MACHINE us Karrie Thuet Victoria MD LAB MICROBIOLOGY - GEN ERAL ORDERABLES Final Result [facility] [address] Department [place] [address] * POCT urinalysis dipstick (09/09/2024 11:45 AM CIRCULAR KNIFE CUTTER MACHINE) Glucose, ur, POC Negative Negative MG/DL Bilirubin, ur, POC Negative Negative, Small, Moderate, Large Ketones, ur, POC Negative Negative Blood, ur, POC Negative Negative Protein, ur, POC Negative Negative Nitrite, ur, POC Negative Negative Leukocytes, ur, POC Negative Negative Lot Number 0 Urine 09/09/2024 11:4 5 AM CIRCULAR KNIFE CUTTER MACHINE us Karrie Kessler MD POINT OF CARE TEST ORD ERABLES Final Result * SCAN - RADIOLOGY/IMAGING (09/09/2024 11:26 AM CIRCULAR KNIFE CUTTER MACHINE) Anatomical Region Laterality Modality Other us Provider Scanning Final Result * US Ob Follow Up (08/31/2024 12:10 PM CIRCULAR KNIFE CUTTER MACHINE) Fetus# [id number] VIEWPOINT Estimated Weight 3,321 g&grams VIEWPOINT Placenta Details anterior, left VIEWPOINT Presentation Vertex VIEWPOINT Anatomical Region Laterality Modality Abdomen N/A Ultrasound 08/31/2024 11:3 3 AM CIRCULAR KNIFE CUTTER MACHINE Impressions 08/31/2024 12:11 PM CIRCULAR KNIFE CUTTER MACHINE Single intrauterine at 35w 2d with positive [...] MICROBIOLOGY - GEN ERAL ORDERABLES Final Result [facility] Department [place] [address] * Pap and High Risk HPV, reflex to Genotyping (10/01/2020 3:07 PM CIRCULAR KNIFE CUTTER MACHINE) Swab 10/01/2020 3:07 PM CIRCULAR KNIFE CUTTER MACHINE 10/02/2020 2:42 PM CIRCULAR KNIFE CUTTER MACHINE Narrative PATHOLOGY [facility] - 10/09/2020 2:40 PM CIRCULAR KNIFE CUTTER MACHINE EPIC results best viewed via link to PDF [facility] [place] [address] CYTOPATHOLOGY REPORT FINAL Patient Name: LYNN MAE Gender: F : 1990 (Age: 29) Address: [address] [place] [address] Hospital #: [id number] Service: Laboratory Location: [facility] Patient Type: [facility] Ref Lab Taken: 10/01/2020 Received: 10/02/2020 Accessioned: [...] 68. This HPV test was performed at [facility] in [place], [place] utilizing the Gen-Probe Aptima assay. j/10/09/2020 14:40 IMELDA Richard(ASCP), [facility] Report Electronically Reviewed and Signed Out By IMELDA Richard(ASCP), [facility] 10/09/2020 14:40:39 Cervicovaginal Cytology (Pap Test) Disclaimer: [...] determined by the Surgical Pathology Department at [facility] as part of an ongoing quality analyst program and in compliance with federally mandated [...] determined by the Surgical Pathology Department of [facility]. It has not been cleared or approved by the U. S. Food and Drug Administration. Karrie Kessler MD LAB CYTOLOGY ORDERABLE S Final Result PATHOLOGY [facility] 3rd Floor [place], [place] [phone] from Last 3 Months or Most Recently Relevant to Health Maintenance Insurance [facility] [employer] Address: [facility] [id number] [place] [address] [facility] [employer] Address: [address] [place] [address] [employer] [facility] [employer] Address: [facility] [id number] [place] [address] Advance Directives For more information, please contact: [phone] * Full Code (Latest Code Status on [...] in case of cardiopulmonary arrest Care Teams Clinical Rn Relationship Specialty Start Date End Date Karrie Kessler MD PCP - General Obstetrics and Gynecology 08/30/20 Ayleen Quan RN [facility] Breast Risk Program Nurse 03/03/23
[2024-11-24 19:33] VITALS: BP 123/70; PULSE 100; RESP 20; TEMP 36.8; O2SAT 100
--- NOTE | 2024-11-24 19:34 | ED.URI ---
HPI - URI/Sore Throat General Chief Complaint: Upper Respiratory Infection Stated Complaint: sore throat/ fever Time Seen by Provider: 11/24/24 19:34 Source: patient Mode of arrival: ambulatory Limitations: no limitations History of Present Illness HPI Narrative: 34-year-old female presents with complaint of sore throat, fever, fatigue, congestion, headache for 4 days. Took ibuprofen around 6:00 p.m.. Reports prior to taking ibuprofen her fever was 101 F. Denies nausea vomiting diarrhea. No chest pain or shortness breath. All systems reviewed and negative except as noted above. Related Data Allergies Allergy/AdvReac Type Severity Reaction Status Date / Time No Known Allergies Allergy Verified 11/24/24 19:44 Review of Systems Review of Systems: CONSTITUTIONAL: Reports fever, chills, or sweats. EYES: Denies visual changes, redness, or discharge. ENT: reports rhinorrhea, congestion, sore throat, left ear pain CARDIOVASCULAR: Denies chest pain, palpitations, or edema. RESPIRATORY: Denies cough or dyspnea. GASTROINTESTINAL: Denies abdominal pain, nausea, vomiting, or diarrhea. GENITOURINARY: Denies dysuria or hematuria. SKIN: Denies rash or itching. MUSCULOSKELETAL: Denies back pain, joint pain, or myalgia. NEUROLOGIC: Denies headache, numbness, or weakness. PSYCHIATRIC: Denies anxiety or depression. All other systems reviewed are negative, except as documented in HPI. PMFSH Comments At time of signature, agree with nursing past medical, surgical, social and family history. There is no relevant family history pertinent to the presenting complaint. Exam Narrative: GENERAL: This is a well-nourished, well-developed patient, ill-appearing but no acute distress HEAD: normocephalic, atraumatic. EYES: PERRL. Sclera clear/white. Vision is grossly intact. EARS: External ears normal, auditory canals clear and without drainage, TMs normal without perforation. Hearing grossly intact. NOSE: External nose normal with mild congestion, clear nasal drainage THROAT: Mucous membranes moist, erythematous without swelling or exudates NECK: Neck supple, non-tender without lymphadenopathy, masses or thyromegaly. CARDIOVASCULAR: Regular rate and rhythm without murmurs, gallops, or rubs. RESPIRATORY: Clear to auscultation. Breath sounds equal bilaterally. No wheezes, rales, or rhonchi. SKIN: warm, Dry, intact with no suspicious lesions or rash, good texture and turgor. NEURO: awake, alert, and oriented to person, place and time. There were no obvious focal neurologic abnormalities. EXTREMITIES: No joint tenderness, effusion, or edema noted. Course Course Level of Care: Express Care Visit Vital Signs Vital signs: Vital Signs Temperature 36.8 C 11/24/24 19:33 Pulse Rate 100 11/24/24 19:33 Respiratory Rate 20 11/24/24 19:33 Blood Pressure 123/70 11/24/24 19:33 Pulse Oximetry 100 11/24/24 19:33 Oxygen Delivery Room Air 11/24/24 19:33 Temperature 36.8 C 11/24/24 19:33 Pulse Rate 100 11/24/24 19:33 Respiratory Rate 20 11/24/24 19:33 Blood Pressure 123/70 11/24/24 19:33 Pulse Oximetry 100 11/24/24 19:33 Oxygen Delivery Room Air 11/24/24 19:33 reviewed MDM - URI/Sore Throat MDM Narrative Medical decision making narrative: Positive strep test. Will treat with amoxicillin. Patient is alert, nontoxic. Recommend she continue [id number] medications to treat pain and fever. Please be advised this is a medical document. It is intended for [id number] communication. It is written in medical language and may contain unfamiliar abbreviations or verbiage. Medical documents are intended to carry relevant information, facts as evident, and the clinical opinion of the practitioner at the time of the encounter. This report may have been done utilizing a voice recognition system. Attempts have been made to correct errors. However, there may be uncorrected grammatical, spelling, and recognition errors present. The file time of this note does not necessarily represent the time of service. Differential Diagnosis Differential diagnosis: Likely upper respiratory infection, sinusitis, viral infection, influenza and pharyngitis Discharge Plan Discharge Clinical Impression: Strep throat Patient Disposition: Home, Self-Care Condition: Stable Instructions: Antibiotic Form, Strep Throat (ED) Additional Instructions: your strep test was positive today. Take antibiotic as prescribed until gone. Change toothbrush after taking antibiotic for 24-48 hours. Take ibuprofen or Tylenol every 6-8 hours as needed for pain and fever. Drink at least 64 oz of water a day. See your doctor if throat pain is not improving. Patient Language: Filipino Prescriptions: New amoxicillin 875 mg tablet 875 mg PO Q12H 10 Days Qty: 20 0RF No Action fluticasone propionate [Flonase Allergy Relief] 50 mcg/actuation spray,suspension 2 spray NASAL DAILY Qty: 15.8 0RF Rx Instructions: administer into each nostril loratadine [Claritin] 10 mg tablet 10 mg PO DAILY Qty: 30 0RF amoxicillin-pot clavulanate [Augmentin] 875-125 mg tablet 1 tablet PO Q12H Qty: 20 0RF Follow-up/Referrals: PHYSICIAN,SHELL FREEZING MACHINE OPERATOR [Primary Care Provider] - Time of Disposition: 19:45
[2024-11-24 19:52] LABS: EDCOVIDSCREEN Negative (Negative); EDINFLUASCREEN Negative (Negative); EDINFLUBSCREEN Negative (Negative); EDSTREPNEGPOS1 Positive (Negative)
== END 2024-11-24 19:52 | disposition home or self-care (01) ==
PROVIDERS: Emergency Provider Nurse Practitioner Family
DX: J02.0 Streptococcal pharyngitis (principal); Z20.822 Contact with and (suspected) exposure to COVID-19
CPT/HCPCS: 87426; 87804; 87880; 99213; G0463